=== PATIENT | male | born 1985 | race Caucasian/White ===

== ENCOUNTER 2021-08-18 19:01 | Emergency (ER) | payer MEDICARE, OTHER ==
[~2021-08-18] VITALS: Ht 157.5 cm; Wt 68.9 kg
[2021-08-18 19:43] LABS: HEMATOCRIT 43.8 % (36.7-47.1); MEAN CORPUSCULAR HEMOGLOBIN 28.6 uug (23.8-33.4); MEAN CORPUSCULAR VOLUME 83.4 fL (73.0-96.2); PLATELET COUNT (AUTO) 325 K/uL (152-348)
[2021-08-18 19:48] LABS: CARBON DIOXIDE 25 mmol/L (21-32); CHLORIDE 104 mmol/L (98-107); GLUCOSE 94 mg/dL (74-106); POTASSIUM 4.4 mmol/L (3.5-5.1); UREA NITROGEN, BLOOD 11 mg/dL (7-18)
[2021-08-18 19:54] LABS: ALANINE AMINOTRANSFERASE 48 U/L (16-63); ALKALINE PHOSPHATASE 83 U/L (50-136); ASPARTATE AMINOTRANSFERASE 22 U/L (15-37); BILIRUBIN,DIRECT 0.1 mg/dL (0.0-0.2); BILIRUBIN,TOTAL 0.2 mg/dL (0.2-1.0); ETHANOL < 3 MG/DL (0-0); TOTAL PROTEIN, SERUM 8.5 g/dL (6.4-8.2)
[2021-08-18 19:56] LABS: ACETAMINOPHEN < 2.0 ug/mL (10-30)
[2021-08-18 20:43] LABS: *BILIRUBIN,URIN NEGATIVE (NEGATIVE); *BLOOD, URINE NEGATIVE (NEGATIVE); *CLARITY,URINE CLEAR (CLEAR); *COLOR,URINE YELLOW (YELLOW); *KETONES,URINE NEGATIVE (NEGATIVE); *UROBILINOGEN,URINE 0.2 E.U./dl (NORMAL); LEUKOCYTE ESTERASE ,URINE NEGATIVE (NEGATIVE); NITRITE, URINE NEGATIVE (NEGATIVE); PH,URINE 5.5 (5.0-8.0); UGLUCOSE NEGATIVE (NEGATIVE)
--- NOTE | 2021-08-18 20:45 | NUR ---
Patient was provided dinner.
[2021-08-18 20:53] LABS: *AMPHETAMINE, URINE NEGATIVE (NEGATIVE); *CANNABINOID, URINE NEGATIVE (NEGATIVE); *COCCAINE, URINE NEGATIVE (NEGATIVE); *OPIATE, URINE NEGATIVE (NEGATIVE); *PHENCYCLIDINE SCREEN,URINE NEGATIVE (NEGATIVE)
--- NOTE | 2021-08-18 21:20 | NUR ---
Patient is medically cleared to be eval by [facility]. Alycia from [facility] called and ETA is 2300.
--- NOTE | 2021-08-18 23:17 | NUR ---
Alycia from PET [facility] here to eval patient.
[2021-08-18] MEDS ORDERED: OLANZAPINE 5 MG TABLET PO ONE (23:45)
[2021-08-19] MEDS ORDERED: OLANZAPINE 5 MG TABLET ONE (00:40)
--- NOTE | 2021-08-19 01:56 | NUR ---
CALLED [facility] TO TRANSFER PATIENT TO [facility]. ETA IS 30MINS.
--- NOTE | 2021-08-19 02:09 | NUR ---
Gave report to Piper from [facility]
--- NOTE | 2021-08-19 02:45 | NUR ---
Pt picked up for transfer to [facility] by [facility] in stable condition.
== END 2021-08-19 03:24 ==
LOC: ER 19:02
DX: F31.9 Bipolar disorder, unspecified (principal); Z20.822 Contact with and (suspected) exposure to COVID-19; J45.909 Unspecified asthma, uncomplicated; F20.9 Schizophrenia, unspecified; Z59.01 Sheltered homelessness
CPT/HCPCS: 36415; 85025; A4663; G0480